=== PATIENT | female | born 1960 | race African-American/Black ===

== ENCOUNTER 2016-09-06 17:41 | Emergency (ER) | payer MEDICAID ==
[~2016-09-06] VITALS: Ht 154.9 cm; Wt 54.4 kg
[2016-09-06 17:52] VITALS: BP_SYST 100
--- NOTE | 2016-09-06 17:58 | NUR ---
Pt placed to ER waiting room in stable condition with pediatric critical care nurse.
--- NOTE | 2016-09-06 18:00 | NUR ---
Pt. to ER AAOx4 presented with her [facility] for ER follow up as per recommendations of her Neurologist to rule out any abdnormal labs, pt. presented asymptomatic, follows commands
--- NOTE | 2016-09-06 18:02 | NUR ---
Pt to hallway bed 1 accompanied by caregiver.
--- NOTE | 2016-09-06 18:10 | NUR ---
Dr. Melendez at bedside for evaluation
[2016-09-06 18:20] VITALS: BP_SYST 110
--- NOTE | 2016-09-06 18:20 | NUR ---
Patient given written and verbal discharge instructions and verbalizes understanding. ER MD Dr. Melendez discussed with patient the results and treatment provided. Patient in stable condition. ID arm band removed. No Rx given. Patient educated on pain management and to follow up with PMD. Pain Scale 0/10 Opportunity for questions provided and answered.
== END 2016-09-06 18:20 | disposition home or self-care (01) ==
LOC: SED 17:41
DX: D72.819 Decreased white blood cell count, unspecified (principal); D69.6 Thrombocytopenia, unspecified; Z88.1 Allergy status to other antibiotic agents; Z88.8 Allergy status to other drugs, medicaments and biological substances
CPT/HCPCS: 99281

== ENCOUNTER 2021-01-26 13:33 | Inpatient (IN) | payer MEDICAID, SELFPAY ==
[~2021-01-26] VITALS: Ht 157.5 cm; Wt 49.9 kg
[2021-01-26 13:33] VITALS: BP_SYST 124
--- NOTE | 2021-01-26 13:33 | NUR ---
BROUGHT BACK TO BED #2 AND TRIAGED. REPORT GIVEN TO SANDY
[2021-01-26 14:19] LABS: BASOPHILS # (AUTO) 0.1 K/uL (0.0-0.2); BASOPHILS % (AUTO) 0.7 % (0.0-2.0); EOSINOPHILS % (AUTO) 0.2 % (0.0-4.0); HEMATOCRIT 36.3 % (36-48); LYMPHOCYTES # (AUTO) 0.7 K/uL (1.0-5.5); LYMPHOCYTES % (AUTO) 8.6 % (20.5-51.5); MEAN CORPUSCULAR HEMOGLOBIN 31 pg (27-31); MEAN CORPUSCULAR HGB CONC 33 % (32-36); MEAN CORPUSCULAR VOLUME 95 fL (79.0-98.0); MONOCYTES # (AUTO) 0.6 K/uL (0.0-1.0); MONOCYTES % (AUTO) 7.9 % (1.7-9.3); NEUTROPHILS # (AUTO) 6.4 K/uL (1.8-7.7); NEUTROPHILS % (AUTO) 82.6 % (40.0-70.0); PLATELET COUNT (AUTO) 151 K/uL (130-430); RED BLOOD CELL COUNT(AUTO) 3.83 MIL/uL (4.2-6.2); RED CELL DISTRIBUTION WIDTH 16.2 % (9.0-15.0); WHITE BLOOD COUNT (AUTO) 7.8 K/uL (4.8-10.8)
--- NOTE | 2021-01-26 14:23 | NUR ---
PT NOTED TO BE IN ROOM 2, PT AWAKE, ALERT, ORIENTED TO NAME ONLY-CONFUSED, ABLE TO FOLLOW SIMPLE COMMANDS. NSR ON MONITOR. RESP EVEN AND UNLABORED, IN NAD. SAFETY PRECAUTIONS IN PLACE.
[2021-01-26 14:33] LABS: CALCIUM 8.4 mg/dL (8.4-11.0); CREATININE 0.66 mg/dL (0.55-1.30); GLUCOSE 99 mg/dL (70-99); POTASSIUM 4.1 mmol/L (3.5-5.1); SODIUM SERUM 138 mmol/L (136-145); UREA NITROGEN, BLOOD 10 mg/dL (8-21)
[2021-01-26 14:37] LABS: INR 1.1 (0.8-1.2); PROTHROMBIN TIME 11.6 SECS (9.5-12.5)
[2021-01-26 14:42] LABS: ALANINE AMINOTRANSFERASE 21 U/L (12-78); ALBUMIN 3.5 g/dL (3.4-4.8); ASPARTATE AMINOTRANSFERASE 18 U/L (10-37); TOTAL BILIRUBIN 0.4 mg/dL (0.0-1.0); VALPROIC ACID 78 ug/mL (50-100)
[2021-01-26 14:47] LABS: CHLORIDE 98 mmol/L (98-107)
[2021-01-26 14:55] LABS: ANION GAP < 3 (5-15); GFR AFRICAN AMERICAN 117 mL/min (>90)
--- NOTE | 2021-01-26 16:09 | NUR ---
PT WITH EYES CLOSED, IN NAD. VSS.
[2021-01-26] MEDS ORDERED: NACL 0.9% 1,000 ML IV ONE (16:30)
[2021-01-26] MEDS ORDERED: DOXYCYCLINE HYCLATE 100 MG in D5W 100 ML IV ONE (17:00)
[2021-01-26] MEDS ORDERED: cefTRIAXone 1 GM in D5W 50 ML IV ONE ×2 (17:00→17:45)
--- NOTE | 2021-01-26 17:07 | NUR ---
ORDERS RECEIVED FOR IV AND MEDS, PT WITH EYES CLOSED, WILL CONT TO MONITOR.
[2021-01-26] MEDS ORDERED: cefTRIAXone 1 GM VIAL ONE (17:25)
[2021-01-26] MEDS ORDERED: DOXYCYCLINE HYCLATE 100 MG VIAL IV ONE (17:26)
--- NOTE | 2021-01-26 17:30 | NUR ---
Admit orders received, pt to go to tele, called for bed assignment, Carisa will call me back.
[2021-01-26] MEDS ORDERED: ACETAMINOPHEN 650 MG/20.3 ML UDC PO ONE (17:45)
[2021-01-26] MEDS ORDERED: AZITHROMYCIN 500 MG in NS 250 ML IV ONE (17:45)
[2021-01-26] MEDS ORDERED: IPRATROPIUM/ALBUTEROL SULFATE 3 ML AMPUL.NEB (DUONEB) INH PRN ×2 (17:45→20:45)
--- NOTE | 2021-01-26 18:20 | NUR ---
Talked to Carisa charge nurse, room assigned, was instructed to wait "because the room needs to be cleaned"
--- NOTE | 2021-01-26 18:49 | NUR ---
NO ACUTE CHANGES IN CONDITION, PT IN NAD. RESP EVEN AND UNLABORED, ON RA @98%. PT DENIES ANY PAIN OR SOB. WAITING FOR TELE BED. CN -ALDO AWARE.
[2021-01-26] MEDS ORDERED: FOLI-43 PO (19:06)
[2021-01-26] MEDS ORDERED: APIX5TAB4 PO (19:06)
[2021-01-26] MEDS ORDERED: BUME1TAB8 PO (19:06)
--- NOTE | 2021-01-26 19:08 | NUR ---
Received report from WADE Alvares and continue care of patient.
[2021-01-26] MEDS ORDERED: LACT10SO6 PO (19:14)
[2021-01-26] MEDS ORDERED: LAM100 PO (19:14)
[2021-01-26] MEDS ORDERED: NITR-85 PO (19:14)
[2021-01-26] MEDS ORDERED: VALP250C3 PO (19:14)
[2021-01-26] MEDS ORDERED: PROM5SYR PO (19:14)
[2021-01-26] MEDS ORDERED: METO2.5T6 PO (19:14)
[2021-01-26] MEDS ORDERED: CYCL10TA24 PO (19:14)
[2021-01-26] MEDS ORDERED: RISP1TAB7 PO (19:14)
[2021-01-26] MEDS ORDERED: VITD2000 PO (19:14)
[2021-01-26] MEDS ORDERED: LIP20 PO (19:14)
[2021-01-26] MEDS ORDERED: LACT10PA5 PO (19:14)
--- NOTE | 2021-01-26 19:14 | NUR ---
Dimple mansfield in [facility] - 01/26/21 at 1915 by SDTRAVPD Medication reconciliation completed with information provided by facility documents. Any prior medication reconciliation on file was reviewed and corrected.
--- NOTE | 2021-01-26 19:14 | NUR ---
Medication reconciliation completed with information provided by facility documents. Any prior medication reconciliation on file was reviewed and corrected.
--- NOTE | 2021-01-26 19:36 | NUR ---
MRSA swabs collected and sent to lab.
[2021-01-26] MEDS ORDERED: AZITHROMYCIN 500 MG/VIAL (ZITHROMAX) IV ONE (19:48)
--- NOTE | 2021-01-26 20:11 | NUR ---
Dr. Oswald at bedside for exam.
--- NOTE | 2021-01-26 20:24 | NUR ---
Patient will be admitted to care of Dr. Pruitt. Admitted to TELE unit. Will go to room 132C. Belongings list completed. Complete and up to date summary report printed. SBAR report to be given at bedside with opportunity for questions.
--- NOTE | 2021-01-26 20:26 | NUR ---
RECEIVED PT FROM ER VIA JAMISON. PT STABLE WITH RESPIRATIONS EVEN AND UNLABORED. PT IS ON 2L O2 VIA NC. NO SIGNS OF DISTRESS NOTED. RECEIVED REPORT FROM DANDY LICENSED PERSONAL. PT STATES SHE IS TIRED AND WANTS TO SLEEP. RIGHT HAND IV 22G INTACT RUNNING IV ABX. PT EXTREMITIES COLD TO THE TOUCH. ADDITIONAL BLANKETS GIVEN. INVENTORY TAKEN. PT CHANGED INTO GOWN AND TELE PLACED. BED IN LOWEST AND LOCKED POSITION. SAFETY PRECAUTIONS IN PLACE. BED IN LOWEST AND LOCKED POSITION. WILL CONTINUE TO MONITOR.
[2021-01-26 21:00] VITALS: BP_SYST 131
[2021-01-26] MEDS: NORMAL SALINE 5 ML DISP.SYRIN IVF SCH (21:10)
--- NOTE | 2021-01-26 21:20 | NUR ---
RECEIVED CALL FROM [facility] SPOKE WITH WADE BAXTER WHO CARES FOR PT. WAS ABLE TO GET HISTORY AND INFORMATION ABOUT PT. HX RECEIVED.
[2021-01-26] MEDS: IPRATROPIUM/ALBUTEROL SULFATE 3 ML AMPUL.NEB (DUONEB) INH SCH (21:32)
[2021-01-26] MEDS: BUDESONIDE 0.5 MG/2 ML AMPUL.NEB INH SCH (21:32)
[2021-01-27 03:16] VITALS: BP_SYST 131
[2021-01-27] MEDS: IPRATROPIUM/ALBUTEROL SULFATE 3 ML AMPUL.NEB (DUONEB) INH SCH ×4 (04:13→20:09)
[2021-01-27] MEDS: NORMAL SALINE 5 ML DISP.SYRIN IVF SCH ×3 (05:29→22:24)
[2021-01-27 06:41] LABS: BASOPHILS % (AUTO) 0.4 % (0.0-2.0); EOSINOPHILS % (AUTO) 0.3 % (0.0-4.0); HEMATOCRIT 39.1 % (36-48); HEMOGLOBIN 12.6 g/dL (12.0-16.0); LYMPHOCYTES # (AUTO) 0.8 K/uL (1.0-5.5); MEAN CORPUSCULAR HEMOGLOBIN 31 pg (27-31); MEAN CORPUSCULAR HGB CONC 32 % (32-36); MEAN CORPUSCULAR VOLUME 96 fL (79.0-98.0); MONOCYTES # (AUTO) 0.6 K/uL (0.0-1.0); MONOCYTES % (AUTO) 7.9 % (1.7-9.3); NEUTROPHILS # (AUTO) 6.4 K/uL (1.8-7.7); NEUTROPHILS % (AUTO) 81.4 % (40.0-70.0); PLATELET COUNT (AUTO) 143 K/uL (130-430); RED BLOOD CELL COUNT(AUTO) 4.08 MIL/uL (4.2-6.2); RED CELL DISTRIBUTION WIDTH 16.2 % (9.0-15.0); WHITE BLOOD COUNT (AUTO) 7.8 K/uL (4.8-10.8)
[2021-01-27] MEDS: BUDESONIDE 0.5 MG/2 ML AMPUL.NEB INH SCH ×2 (09:00→20:09)
[2021-01-27 09:49] LABS: ALBUMIN 3.6 g/dL (3.4-4.8); CALCIUM 8.9 mg/dL (8.4-11.0); CREATININE 0.58 mg/dL (0.55-1.30); POTASSIUM 3.8 mmol/L (3.5-5.1); TOTAL BILIRUBIN 0.4 mg/dL (0.0-1.0)
[2021-01-27 09:50] LABS: THYROID STIMULATING HORMONE 3.42 uIu/mL (0.36-3.74)
[2021-01-27] MEDS: PANTOPRAZOLE SODIUM 40 MG/VIAL (PROTONIX) IVP SCH (10:01)
[2021-01-27 12:20] VITALS: BP_SYST 137
[2021-01-27] MEDS ORDERED: BUMEX 1 MG/4 ML VIAL IVP ONE (12:45)
[2021-01-27 15:54] VITALS: BP_SYST 159
[2021-01-27 19:00] VITALS: BP_SYST 129
--- NOTE | 2021-01-27 19:15 | NUR ---
change of shift.pt.new admission.pt.presents loc;confused affect;anxious.pt.had removed iv access.pt.presents o2 therapy via nrb-mask,o2 nasal cannulae.call light/telephone w/in access of the pt.
[2021-01-27 20:00] VITALS: BP_SYST 129
--- NOTE | 2021-01-27 20:00 | NUR ---
pt.assessed.v/s assessed values wnl.o2-sat%=94%.i have re-established the iv access;location:lt.hand#24g.pt.assessed for cleanliness pt.repositioned.no c/o pain,nausea.call light/telephone placed w/in access of the pt.
[2021-01-27] MEDS: BUMEX 1 MG/4 ML VIAL IVP SCH (21:00)
--- NOTE | 2021-01-27 21:00 | NUR ---
2100p medications administered.pt.capable to ingest the po medications w/out difficulty.no c/o pain,nausea.call light/ telephone placed w/in access of the pt.
--- NOTE | 2021-01-27 21:13 | NUR ---
DR. KIM ALVAREZ MAKING ROUNDS AT THIS TIME, HE HAS GIVEN NEW ORDER FOR ATIVAN 0.5 MG PO Q6H PRN ANXIETY OR AGITATION. ORDER READ BACK, VERIFIED, AND ENTERED.
[2021-01-27] MEDS ORDERED: LORazepam 1 MG TABLET PO PRN (21:15)
--- NOTE | 2021-01-27 22:00 | NUR ---
pt.assessed.pt.presents quiescent affect calm,somnolent.per flacc pain mgx pt.absent facial grimaces/body posturing. iv access intact iv fluids infusing.pt.assessed for cleanliness.pt.repositioned.call light/legal executive placed w/in access of the pt. Addendum: 01/28/21 at 0417 by Yehuda Cassidy RN 02-sat%=96%
[2021-01-27] MEDS: APIXABAN 2.5 MG TABLET PO SCH (22:24)
[2021-01-27] MEDS: AZITHROMYCIN 500 MG in NS 250 ML IV SCH (22:26)
[2021-01-27] MEDS: cefTRIAXone 1 GM IVPB PREMIX 50 ML IV SCH (22:26)
[2021-01-27] MEDS ORDERED: cefTRIAXone 1 GM VIAL ONE (22:28)
[2021-01-27] MEDS ORDERED: AZITHROMYCIN 500 MG/VIAL (ZITHROMAX) IV ONE (22:29)
--- NOTE | 2021-01-28 | NUR ---
pt.assessed.v/s assessed values wnl.no c/o pain,nausea.iv access intact iv fluids infusing.pt.assessed for cleanliness pt.repositioned.call light/telephone placed w/in access of the pt. Addendum: 01/28/21 at 0416 by Yehuda Cassidy RN 02-sat%=96%.
[2021-01-28] MEDS: IPRATROPIUM/ALBUTEROL SULFATE 3 ML AMPUL.NEB (DUONEB) INH SCH ×4 (00:20→19:52)
[2021-01-28 00:30] VITALS: BP_SYST 107
--- NOTE | 2021-01-28 02:00 | NUR ---
pt.assessed.pt.presents quiescent affect calm,somnolent.per flacc pain mgx pt.absent facial grimaces/body posturing. iv access intact iv fluids infusing.o2-sat%=96%.pt.assessed for cleanliness.pt.repositioned.call light/telephone placed w/in access of the pt.
--- NOTE | 2021-01-28 04:00 | NUR ---
pt.assessed.pt.presents quiescent affect calm,somnolent.per flacc pain mgx pt.absent facial grimaces/body posturing. pt.assessed for cleanliness.pt.repositioned.iv access intact iv fluids infusing.02-sat%=96%.call light/telephone placed w/in access of the pt.
[2021-01-28] MEDS: NORMAL SALINE 5 ML DISP.SYRIN IVF SCH ×3 (05:03→22:20)
--- NOTE | 2021-01-28 06:04 | NUR ---
pt.assessed.o2-sat%=94%.pt.assessed for cleanliness.pt.repositioned.iv access intact iv fluids infusing.no c/o pain,nausea. call light/telephone placed w/in access of the pt.
[2021-01-28 07:58] VITALS: BP_SYST 132
--- NOTE | 2021-01-28 08:23 | NUR ---
INITIAL ROUNDS/ RESP Received pt AAox1-2, very sweaty, SAO2 55% at 0758 per nursing unit clerk, RT was in the room and placed the pt on NRB at 15L O2. Stat ABGs done and pCO2 105-Dr. Oswald called and informed of critical value and pt placed on Bipap as ordered. Dr. Oswald will see pt shortly. Side rails up x3, room across from nursing station for safety, call light within reach.
--- NOTE | 2021-01-28 08:50 | NUR ---
rt notes 0820 Seen pt, no o2 and gasping for air. Upon pulse ox check, pt sat 55%. 15L NRB was placed. ABG maday, based on results CO2 105. Placed pt on BIPAP per Dr. Oswald's settings. ABG in 2 hours. Will continue to monitor pt. RN Reena aware.
[2021-01-28] MEDS: BUDESONIDE 0.5 MG/2 ML AMPUL.NEB INH SCH ×2 (09:00→19:52)
[2021-01-28] MEDS: PANTOPRAZOLE SODIUM 40 MG/VIAL (PROTONIX) IVP SCH (09:47)
[2021-01-28] MEDS: BUMEX 1 MG/4 ML VIAL IVP SCH ×2 (09:49→22:08)
[2021-01-28] MEDS: ATORVASTATIN 20 MG TABLET PO SCH (09:49)
[2021-01-28] MEDS: APIXABAN 2.5 MG TABLET PO SCH ×2 (09:50→22:19)
[2021-01-28 10:57] LABS: BASOPHILS % (AUTO) 0.3 % (0.0-2.0); EOSINOPHILS % (AUTO) 0.1 % (0.0-4.0); HEMATOCRIT 40.1 % (36-48); HEMOGLOBIN 12.8 g/dL (12.0-16.0); LYMPHOCYTES # (AUTO) 0.2 K/uL (1.0-5.5); LYMPHOCYTES % (AUTO) 1.7 % (20.5-51.5); MEAN CORPUSCULAR HEMOGLOBIN 31 pg (27-31); MEAN CORPUSCULAR HGB CONC 32 % (32-36); MEAN CORPUSCULAR VOLUME 96 fL (79.0-98.0); MONOCYTES # (AUTO) 0.6 K/uL (0.0-1.0); MONOCYTES % (AUTO) 4.7 % (1.7-9.3); NEUTROPHILS # (AUTO) 11.2 K/uL (1.8-7.7); NEUTROPHILS % (AUTO) 93.2 % (40.0-70.0); PLATELET COUNT (AUTO) 170 K/uL (130-430); RED BLOOD CELL COUNT(AUTO) 4.17 MIL/uL (4.2-6.2); RED CELL DISTRIBUTION WIDTH 16.1 % (9.0-15.0)
[2021-01-28 11:07] LABS: CALCIUM 9.5 mg/dL (8.4-11.0); CREATININE 0.62 mg/dL (0.55-1.30); POTASSIUM 4.3 mmol/L (3.5-5.1)
[2021-01-28 12:00] VITALS: BP_SYST 120
--- NOTE | 2021-01-28 13:40 | NUR ---
rt notes 1340 Offload pt. from bipap. Placed pt on 4LNC, pt tolerating well. saturating 97%. will continue to monitor pt. RN Reena aware.
--- NOTE | 2021-01-28 14:18 | NUR ---
RESP Pt has low SAO2 of 77%, noted pt removed her oxygen, oxygen placed back onto pt-encouraged slow, deep breaths and only able to get SAO2 up to 85%-RT called and now SAO2 95%. Pt changed and repositioned with pillow support-pt refused heels off-loaded. All precautions remain in place.
[2021-01-28 16:00] VITALS: BP_SYST 128
--- NOTE | 2021-01-28 16:07 | NUR ---
rt notes 1607 Titrated pt to 3LNC saturating 95%. encouraged pt to breath through nose. Occasionally pt desats due to pt moving around/ removing O2. will continue to monitor pt.
--- NOTE | 2021-01-28 17:56 | NUR ---
IV Pt's IV became dislodged, unable to find a new site. Dr. Pruitt called and order for a midline given.
--- NOTE | 2021-01-28 18:46 | NUR ---
CLOSING NOTE Pt sitting up in bed with no s/s resp distress, no c/o pain or discomfort. Pt remains confused and anxious at times. Aspiration, skin and safety precautions remain in place. Call light within reach.
[2021-01-28 19:25] VITALS: BP_SYST 107
--- NOTE | 2021-01-28 19:25 | NUR ---
INITIAL NOTE AT INITIAL ASSESSMENT, PATIENT IS RESTING IN BED, STABLE, NO SIGNS OF RESPIRATORY DISTRESS. PATIENT VERBALIZES NO PAIN. PLAN OF CARE FOR THE EVENING IS COMMUNICATED WITH THE PATIENT, SHE IS CONFUSED, WHICH IS HER BASELINE. PATIENT IS UNABLE TO DEMONSTRATE CORRECT USAGE OF CALL LIGHT AT THIS TIME DUE TO COGNITIVE IMPAIRMENT; FREQUENT ROUNDING WILL BE COMPLETED THROUGHOUT THE NIGHT TO MEET ALL PATIENT NEEDS. BED IS LOCKED, ALARMED, AND AT THE LOWEST LEVEL. FALL SAFETY EDUCATION PROVIDED. FALL, SAFETY, AND RESPIRATORY PRECAUTIONS WILL BE TAKEN THROUGHOUT THE SHIFT.
--- NOTE | 2021-01-28 21:45 | NUR ---
NEW IV PLACEMENT NEW IV IS PLACED ON PATIENT'S LEFT FOREARM #22 GAUGE, 10 MLS NS FLUSHED WITH NO RESISTANCE OR PAIN. PATIENT TOLERATED WELL. IV IS CHECKED TO BE PATENT, SECURED, AND LABELED WITH DATE AND TIME OF INSERTION.
[2021-01-28] MEDS: cefTRIAXone 1 GM IVPB PREMIX 50 ML IV SCH (21:58)
[2021-01-28] MEDS: AZITHROMYCIN 500 MG in NS 250 ML IV SCH (21:58)
--- NOTE | 2021-01-28 22:30 | NUR ---
COMMUNICATION W/ DR. KIM ALVAREZ PAGED AT THIS TIME, HE HAS BEEN MADE AWARE OF PATIENT'S COMPLAINT OF ITCHINESS. GAVE ORDERS FOR BENADRYL 25 MG IVP [id number] PRN ITCHINESS. ORDER READ BACK, VERIFIED, AND ENTERED. WILL BE GIVEN TO PATIENT ONCE APPROVED BY PHARMACY. Addendum: 01/29/21 at 0631 by Kylee Lebron RN DR. ALVAREZ ALSO MADE AWARE THAT PATIENT IS VERY ANXIOUS, WITH NONSTOP SHOUTING. DR. ALVAREZ GAVE ORDER FOR ATIVAN BUT WAS MADE AWARE THAT PATIENT IS ALLERGIC TO ATIVAN. STATED NO NEW ORDERS FOR ANXIETY AND AGITATION.
[2021-01-28] MEDS: DIPHENHYDRAMINE INJ 50 MG/ML VIAL IVP PRN (22:57)
--- NOTE | 2021-01-28 23:10 | NUR ---
HYGIENE CARE NOTE HYGIENE CARE IS PROVIDED AT THIS TIME, FRESH LINENS PROVIDED, AND PATIENT IS REPOSITIONED FOR COMFORT. PATIENT TOLERATED WELL. CALL LIGHT PLACED WITHIN REACH. BED IS LOCKED, ALARMED, AND AT THE LOWEST LEVEL.
[2021-01-29] VITALS: BP_SYST 111
[2021-01-29] MEDS: IPRATROPIUM/ALBUTEROL SULFATE 3 ML AMPUL.NEB (DUONEB) INH SCH ×3 (02:45→15:05)
--- NOTE | 2021-01-29 05:40 | NUR ---
HYGIENE CARE NOTE PATIENT HAD BOWEL MOVEMENT AND VOID, HYGIENE CARE IS PROVIDED AT THIS TIME, FRESH LINENS PROVIDED, AND PATIENT IS REPOSITIONED FOR COMFORT. PATIENT TOLERATED WELL. CALL LIGHT PLACED WITHIN REACH. BED IS LOCKED, ALARMED, AND AT THE LOWEST LEVEL.
--- NOTE | 2021-01-29 06:27 | NUR ---
CLOSING NOTE PATIENT WAS ANXIOUS AND AGITATED THROUGHOUT THE NIGHT, SHOUTING BECAUSE SHE WANTED STAFF AT BEDSIDE EVERY PASSING SECOND- SHE SLEPT FOR FEW MINUTES WHEN SHE WOULD FALL ASLEEP. NO SHORTNESS OF BREATH NOTED. AT THIS TIME, PATIENT IS RESTING IN BED, STABLE, NO SIGNS OF RESPIRATORY DISTRESS. CALL LIGHT IS WITHIN REACH. BED IS LOCKED, ALARMED, AND AT THE LOWEST LEVEL. FALL, SAFETY, ASPIRATION, AND RESPIRATORY PRECAUTIONS HAVE BEEN TAKEN THROUGHOUT THE SHIFT. WILL CONTINUE TO MONITOR UNTIL SHIFT REPORT IS GIVEN AT BEDSIDE TO AM NURSE.
[2021-01-29] MEDS: NORMAL SALINE 5 ML DISP.SYRIN IVF SCH ×3 (06:49→22:23)
--- NOTE | 2021-01-29 07:15 | NUR ---
RESTRAINTS PATIENT WITH LOW O2 SATURATION, REFUSED TO KEEP OXYGEN. PATIENT IS CONFUSED, BILATERAL WRIST RESTRAINTS APPLIED TO PREVENT FROM REMOVING 02 AND OXYGEN. UNABLE TO CONTACT FAMILY MEMBER, NO ONE ANSWER THE PHONE.. GAVE ORDER TO APPLY RESTRAINTS TO PATIENT
--- NOTE | 2021-01-29 07:45 | NUR ---
OPENING NOTES: RECEIVED PATIENT FROM PLATE STACKER HAND NURSE. PATIENT IS AWAKE LAYING DOWN IN BED. TOLERATED OXYGEN ON 3L NASAL CANNULA WITH NO DISTRESS NOTED. IV LINE PATENT AND INTACT WITH NO INFILTRATION NOTED. PATIENT STABLE AT THIS TIME. SAFETY, FALL, AND ASPIRATION PRECAUTIONS ARE IN PLACE. BED LOCKED IN LOWEST POSITION AND CALL LIGHT IN REACH. WILL CONTINUE TO MONITOR PATIENT FOR ANY CHANGES.
[2021-01-29 08:00] VITALS: BP_SYST 114
[2021-01-29 08:41] VITALS: BP_SYST 111
[2021-01-29] MEDS: BUDESONIDE 0.5 MG/2 ML AMPUL.NEB INH SCH (09:07)
[2021-01-29 09:51] LABS: BASOPHILS % (AUTO) 0.3 % (0.0-2.0); EOSINOPHILS % (AUTO) 0.1 % (0.0-4.0); HEMATOCRIT 36.6 % (36-48); HEMOGLOBIN 11.7 g/dL (12.0-16.0); LYMPHOCYTES # (AUTO) 0.2 K/uL (1.0-5.5); LYMPHOCYTES % (AUTO) 1.5 % (20.5-51.5); MEAN CORPUSCULAR HEMOGLOBIN 31 pg (27-31); MEAN CORPUSCULAR HGB CONC 32 % (32-36); MEAN CORPUSCULAR VOLUME 96 fL (79.0-98.0); MONOCYTES % (AUTO) 8.3 % (1.7-9.3); NEUTROPHILS # (AUTO) 11.1 K/uL (1.8-7.7); NEUTROPHILS % (AUTO) 89.8 % (40.0-70.0); PLATELET COUNT (AUTO) 152 K/uL (130-430); RED BLOOD CELL COUNT(AUTO) 3.81 MIL/uL (4.2-6.2); WHITE BLOOD COUNT (AUTO) 12.3 K/uL (4.8-10.8)
--- NOTE | 2021-01-29 10:00 | NUR ---
CM: faxed subacute referral to [facility], attjeffrey Gonzalez. The pt is accepted but no care home bed. Lisa is expecting bed available during upcoming week.
[2021-01-29] MEDS: PANTOPRAZOLE SODIUM 40 MG/VIAL (PROTONIX) IVP SCH (10:10)
[2021-01-29] MEDS: ATORVASTATIN 20 MG TABLET PO SCH (10:11)
[2021-01-29] MEDS: APIXABAN 2.5 MG TABLET PO SCH ×2 (10:11→22:29)
[2021-01-29] MEDS: BUMEX 1 MG/4 ML VIAL IVP SCH ×2 (10:14→22:24)
--- NOTE | 2021-01-29 10:33 | NUR ---
Nutrition Update Mendoza Scale 18 noted. Pt admitted for respiratory acidosis. Diet: 2 gm Na BMI: 20.2 kg/m2 RD to follow per nutrition care standards.
[2021-01-29 10:41] LABS: CALCIUM 8.8 mg/dL (8.4-11.0); CREATININE 0.67 mg/dL (0.55-1.30)
[2021-01-29 12:00] VITALS: BP_SYST 116
[2021-01-29 16:00] VITALS: BP_SYST 122
--- NOTE | 2021-01-29 18:45 | NUR ---
CLOSING NOTES: PATIENT IS AWAKE LAYING DOWN IN BED. TOLERATED OXYGEN ON 3L NASAL CANNULA WITH NO DISTRESS NOTED. IV LINE PATENT AND INTACT WITH NO INFILTRATION NOTED. PATIENT STABLE AT THIS TIME. SAFETY, FALL, AND ASPIRATION PRECAUTIONS REMAINED IN PLACE. BED LOCKED IN LOWEST POSITION AND CALL LIGHT IN REACH. WILL ENDORSE PATIENT CARE TO ONCOMING GARMENT FORM ASSEMBLER NURSE.
[2021-01-29 19:25] VITALS: BP_SYST 112
[2021-01-29] MEDS: AZITHROMYCIN 500 MG in NS 250 ML IV SCH (22:22)
[2021-01-29] MEDS: DIPHENHYDRAMINE INJ 50 MG/ML VIAL IVP PRN (22:22)
[2021-01-29] MEDS: cefTRIAXone 1 GM IVPB PREMIX 50 ML IV SCH (22:22)
[2021-01-30 00:45] VITALS: BP_SYST 122
[2021-01-30] MEDS: IPRATROPIUM/ALBUTEROL SULFATE 3 ML AMPUL.NEB (DUONEB) INH SCH ×4 (02:15→14:45)
[2021-01-30] MEDS: BUDESONIDE 0.5 MG/2 ML AMPUL.NEB INH SCH ×2 (02:16→09:00)
[2021-01-30 06:39] LABS: BASOPHILS # (AUTO) 0.1 K/uL (0.0-0.2); BASOPHILS % (AUTO) 0.6 % (0.0-2.0); EOSINOPHILS # (AUTO) 0.3 K/uL (0.0-0.4); EOSINOPHILS % (AUTO) 3.3 % (0.0-4.0); HEMATOCRIT 33.5 % (36-48); LYMPHOCYTES # (AUTO) 0.5 K/uL (1.0-5.5); LYMPHOCYTES % (AUTO) 5.8 % (20.5-51.5); MEAN CORPUSCULAR HEMOGLOBIN 32 pg (27-31); MEAN CORPUSCULAR HGB CONC 33 % (32-36); MEAN CORPUSCULAR VOLUME 96 fL (79.0-98.0); MONOCYTES # (AUTO) 0.9 K/uL (0.0-1.0); MONOCYTES % (AUTO) 10.1 % (1.7-9.3); NEUTROPHILS # (AUTO) 7.3 K/uL (1.8-7.7); NEUTROPHILS % (AUTO) 80.2 % (40.0-70.0); PLATELET COUNT (AUTO) 190 K/uL (130-430); RED BLOOD CELL COUNT(AUTO) 3.48 MIL/uL (4.2-6.2); RED CELL DISTRIBUTION WIDTH 15.7 % (9.0-15.0); WHITE BLOOD COUNT (AUTO) 9.1 K/uL (4.8-10.8)
[2021-01-30] MEDS: NORMAL SALINE 5 ML DISP.SYRIN IVF SCH ×3 (06:41→22:00)
--- NOTE | 2021-01-30 07:01 | NUR ---
CLOSING NOTE PATIENT WAS ANXIOUS THROUGHOUT MOST THE NIGHT. PATIENT DID NOT HAVE ANY ACUTE EPISODES OF RESPIRATORY DISTRESS SINCE RESTRAINTS WERE ON. AT THIS TIME, PATIENT IS RESTING IN BED, STABLE, NO SIGNS OF RESPIRATORY DISTRESS. CALL LIGHT IS WITHIN REACH. BED IS LOCKED, ALARMED, AND AT THE LOWEST LEVEL. SIGNS OF INJURY RELATED TO RESTRAINTS WERE ASSESSED [id number] DURING THE SHIFT, NO SIGNS NOTED. FALL, SAFETY, ASPIRATION, RESTRAINT, AND RESPIRATORY PRECAUTIONS HAVE BEEN TAKEN THROUGHOUT THE SHIFT. WILL CONTINUE TO MONITOR UNTIL SHIFT REPORT IS GIVEN AT BEDSIDE TO AM NURSE.
[2021-01-30 07:45] VITALS: BP_SYST 122
--- NOTE | 2021-01-30 08:00 | NUR ---
MORNING ROUNDS: RECEIVED PATIENT FROM CARGO CHECKER NURSE. PATIENT IS AWAKE LAYING DOWN IN BED. TOLERATED OXYGEN ON 3L NASAL CANNULA WITH NO DISTRESS NOTED. IV LINE PATENT AND INTACT WITH NO INFILTRATION NOTED. PATIENT STABLE AT THIS TIME. SAFETY, FALL, AND ASPIRATION PRECAUTIONS ARE IN PLACE. BED LOCKED IN LOWEST POSITION AND CALL LIGHT IN REACH. WILL CONTINUE TO MONITOR PATIENT FOR ANY CHANGES.
[2021-01-30] MEDS: PANTOPRAZOLE SODIUM 40 MG/VIAL (PROTONIX) IVP SCH (08:26)
[2021-01-30] MEDS: BUMEX 1 MG/4 ML VIAL IVP SCH (08:29)
[2021-01-30] MEDS: ATORVASTATIN 20 MG TABLET PO SCH (08:30)
[2021-01-30] MEDS: APIXABAN 2.5 MG TABLET PO SCH (08:30)
[2021-01-30 09:19] LABS: CALCIUM 8.7 mg/dL (8.4-11.0); CREATININE 0.55 mg/dL (0.55-1.30); POTASSIUM 3.8 mmol/L (3.5-5.1)
--- NOTE | 2021-01-30 11:00 | NUR ---
Discharge Planning: DCP followed up on referral sent to [facility] (F [phone] P [phone]) requesting vaccination status, still no beds. DCP spoke to SHEYLA [facility], CM left message.
[2021-01-30 13:00] VITALS: BP_SYST 113
--- NOTE | 2021-01-30 13:00 | NUR ---
LUNCH ROUNDS: PATIENT IS AWAKE SITTING IN BED. TOLERATED OXYGEN ON 3L NASAL CANNULA WITH NO DISTRESS NOTED. IV LINE PATENT AND INTACT WITH NO INFILTRATION NOTED. PATIENT STABLE AT THIS TIME. SAFETY, FALL, AND ASPIRATION PRECAUTIONS ARE IN PLACE. BED LOCKED IN LOWEST POSITION AND CALL LIGHT IN REACH. WILL CONTINUE TO MONITOR PATIENT FOR ANY CHANGES.
[2021-01-30] MEDS ORDERED: DIGO125T PO (13:48)
[2021-01-30] MEDS ORDERED: BENZ1TAB76 PO (13:48)
[2021-01-30] MEDS ORDERED: LEVO25TA7 PO (13:48)
[2021-01-30] MEDS ORDERED: ASCO500T20 PO (13:48)
[2021-01-30] MEDS ORDERED: PYRI-7 PO (13:48)
[2021-01-30] MEDS ORDERED: AMLO2.5T2 PO (13:48)
[2021-01-30] MEDS ORDERED: METF-379 PO (13:48)
[2021-01-30 17:48] LABS: INR 1.1 (0.8-1.2); PROTHROMBIN TIME 11.7 SECS (9.5-12.5)
[2021-01-30] MEDS: BUMETANIDE 1 MG TABLET PO SCH (17:50)
[2021-01-30 18:11] VITALS: BP_SYST 118
--- NOTE | 2021-01-30 18:42 | NUR ---
Closing Notes: PATIENT IS AWAKE LAYING DOWN IN BED. TOLERATED OXYGEN ON 3L NASAL CANNULA WITH NO DISTRESS NOTED. IV LINE PATENT AND INTACT WITH NO INFILTRATION NOTED. PATIENT STABLE AT THIS TIME. SAFETY, FALL, AND ASPIRATION PRECAUTIONS ARE IN PLACE. BILATERAL WRIST RESTRAINTS IN PLACE. BED LOCKED IN LOWEST POSITION AND CALL LIGHT IN REACH. WILL CONTINUE ENDORSE TO NIGHT NURSE.
[2021-01-30] MEDS: WARFARIN SODIUM 5 MG TABLET PO SCH (18:57)
[2021-01-30 20:06] VITALS: BP_SYST 119
[2021-01-30] MEDS: cefTRIAXone 1 GM IVPB PREMIX 50 ML IV SCH (20:15)
--- NOTE | 2021-01-30 20:23 | NUR ---
INCONTINENCE INCONTINENCE CARE DONE.
[2021-01-30] MEDS: ENOXAPARIN SODIUM 60 MG/0.6 ML SYRINGE SUBCUT SCH (20:34)
[2021-01-30] MEDS: AZITHROMYCIN 500 MG in NS 250 ML IV SCH (21:45)
--- NOTE | 2021-01-30 21:45 | NUR ---
MED PASS PATIENT DUE MEDICATIONS GIVEN. VITAL SIGNS STABLE.
[2021-01-31 00:31] VITALS: BP_SYST 118
--- NOTE | 2021-01-31 01:00 | NUR ---
ROUNDS PATIENT RESTING IN BED. NO DISTRESS NOTED. VITAL SIGNS STABLE.
[2021-01-31] MEDS: IPRATROPIUM/ALBUTEROL SULFATE 3 ML AMPUL.NEB (DUONEB) INH SCH ×5 (02:03→20:01)
[2021-01-31] MEDS: BUDESONIDE 0.5 MG/2 ML AMPUL.NEB INH SCH ×2 (02:04→09:00)
[2021-01-31] MEDS: NORMAL SALINE 5 ML DISP.SYRIN IVF SCH ×3 (05:32→21:48)
--- NOTE | 2021-01-31 06:21 | NUR ---
CLOSING NOTES NO CHANGE IN PATENT CONDITION. PATIENT NEEDS ATTENDED. BED IN LOWEST LOCKED POSITION WITH ALARM ON.
[2021-01-31 06:52] LABS: BASOPHILS % (AUTO) 0.6 % (0.0-2.0); EOSINOPHILS # (AUTO) 0.1 K/uL (0.0-0.4); EOSINOPHILS % (AUTO) 1.8 % (0.0-4.0); HEMATOCRIT 35.8 % (36-48); HEMOGLOBIN 11.4 g/dL (12.0-16.0); LYMPHOCYTES # (AUTO) 0.5 K/uL (1.0-5.5); LYMPHOCYTES % (AUTO) 8.3 % (20.5-51.5); MEAN CORPUSCULAR HEMOGLOBIN 31 pg (27-31); MEAN CORPUSCULAR HGB CONC 32 % (32-36); MEAN CORPUSCULAR VOLUME 97 fL (79.0-98.0); MONOCYTES # (AUTO) 0.7 K/uL (0.0-1.0); MONOCYTES % (AUTO) 11.5 % (1.7-9.3); NEUTROPHILS # (AUTO) 4.5 K/uL (1.8-7.7); NEUTROPHILS % (AUTO) 77.8 % (40.0-70.0); PLATELET COUNT (AUTO) 175 K/uL (130-430); RED BLOOD CELL COUNT(AUTO) 3.71 MIL/uL (4.2-6.2); RED CELL DISTRIBUTION WIDTH 15.5 % (9.0-15.0); WHITE BLOOD COUNT (AUTO) 5.8 K/uL (4.8-10.8)
[2021-01-31 07:57] LABS: CREATININE 0.52 mg/dL (0.55-1.30); POTASSIUM 3.4 mmol/L (3.5-5.1)
[2021-01-31 08:00] VITALS: BP_SYST 118
[2021-01-31 08:01] LABS: INR 1.1 (0.8-1.2); PROTHROMBIN TIME 11.3 SECS (9.5-12.5)
[2021-01-31] MEDS: ATORVASTATIN 20 MG TABLET PO SCH (09:10)
[2021-01-31] MEDS: PANTOPRAZOLE SODIUM 40 MG/VIAL (PROTONIX) IVP SCH (09:10)
[2021-01-31] MEDS: ENOXAPARIN SODIUM 60 MG/0.6 ML SYRINGE SUBCUT SCH ×2 (09:12→21:47)
[2021-01-31] MEDS: BUMETANIDE 1 MG TABLET PO SCH ×2 (09:35→17:48)
--- NOTE | 2021-01-31 10:21 | NUR ---
Dietitian Recommendations *Recommend: Mechanical soft 2gm Na diet w/ Ensure Enlive TID. ONS will provide additional 1050 kcal, 60gm protein daily. *Encourage PO intake. *Consider adding appetite stimulant. Please see Nutritional Assessment for details. NKECHI BRYSON
[2021-01-31 12:00] VITALS: BP_SYST 104
--- NOTE | 2021-01-31 12:53 | NUR ---
spoke with outsole caser and confirmed it is okay to give an update report the nurse misael at [facility] where patient is from, she stated yes, provided update on patient status for INR and that dc planning has been ordered.
--- NOTE | 2021-01-31 14:22 | NUR ---
Discharge Planning: DCP followed up on referral sent to [facility] (F [phone] P [phone]) will not have a bed till Saturday. DCP made CM aware, CM request referral be sent to other facilities.
[2021-01-31 16:00] VITALS: BP_SYST 113
[2021-01-31] MEDS: WARFARIN SODIUM 5 MG TABLET PO SCH (17:47)
--- NOTE | 2021-01-31 19:00 | NUR ---
RECEIVED BEDSIDE REPORT. PT IN BED RESTING AWAKE. NO ACUTE DISTRESS NOTED. BED RAILS UPX2. BED LOCKED IN LOWEST POSITION. CALL LIGHT WITHIN REACH. BED ALARM ON. PT EDUCATED TO USE CALL LIGHT IF SHE NEEDS ASSISTANCE. WILL CONTINUE TO MONITOR.
--- NOTE | 2021-01-31 19:04 | NUR ---
patient in bed, no s/s of distress, tolerating care, iv intact patent, bed alarm on, bilateral soft wrist restraints in place, no s/s of injury, verbal but delayed and confused throughout shift, bed in lowest locked position, call light within reach, endorsed continuation of care to night order selector.
[2021-01-31] MEDS: cefTRIAXone 1 GM IVPB PREMIX 50 ML IV SCH (20:04)
[2021-01-31 20:11] VITALS: BP_SYST 109
[2021-01-31] MEDS: AZITHROMYCIN 500 MG in NS 250 ML IV SCH (21:48)
[2021-01-31] MEDS: DIPHENHYDRAMINE INJ 50 MG/ML VIAL IVP PRN (22:56)
[2021-02-01 01:18] VITALS: BP_SYST 139
[2021-02-01] MEDS: BUDESONIDE 0.5 MG/2 ML AMPUL.NEB INH SCH ×3 (04:57→21:04)
[2021-02-01] MEDS: IPRATROPIUM/ALBUTEROL SULFATE 3 ML AMPUL.NEB (DUONEB) INH SCH ×4 (04:57→21:03)
--- NOTE | 2021-02-01 05:00 | NUR ---
NEW IV INSERTED IN LFA 20G. PT TOLERATED WELL Addendum: 02/01/21 at 0623 by Samuel Buchanan RN WRONG PT.
[2021-02-01] MEDS: NORMAL SALINE 5 ML DISP.SYRIN IVF SCH ×3 (05:38→21:30)
--- NOTE | 2021-02-01 06:21 | NUR ---
PT ASLEEP IN BED WITH EYES CLOSED. PT DOESN'T APPEAR TO BE IN PAIN AT THIS TIME. PAIN AT THIS TIME. CALL LIGHT WITHIN REACH. RESTRAINTS INTACT. SEIZURE PRECAUTIONS IN PLACE. PT SLEPT THROUGH NIGHT.
--- NOTE | 2021-02-01 07:17 | NUR ---
endorsed care to day rn
--- NOTE | 2021-02-01 07:30 | NUR ---
OPENING NOTES: RECEIVED REPORT FROM COPIER AND PRINTER FIELD TECHNICIAN NURSE. PATIENT IS AWAKE LAYING DOWN IN BED. TOLERATED OXYGEN ON 2L NASAL CANNULA WITH NO DISTRESS NOTED. IV LINE PATENT AND INTACT WITH NO INFILTRATION NOTED. PATIENT STABLE AT THIS TIME. SAFETY, FALL, AND ASPIRATION PRECAUTIONS ARE IN PLACE. BED LOCKED IN LOWEST POSITION AND CALL LIGHT IN REACH. WILL CONTINUE TO MONITOR PATIENT FOR ANY CHANGES.
[2021-02-01 07:42] LABS: INR 1.3 (0.8-1.2); PROTHROMBIN TIME 13.3 SECS (9.5-12.5)
[2021-02-01 08:00] VITALS: BP_SYST 122
[2021-02-01] MEDS: ATORVASTATIN 20 MG TABLET PO SCH (09:42)
[2021-02-01] MEDS: PANTOPRAZOLE SODIUM 40 MG/VIAL (PROTONIX) IVP SCH (09:42)
[2021-02-01] MEDS: ENOXAPARIN SODIUM 60 MG/0.6 ML SYRINGE SUBCUT SCH ×2 (09:43→21:33)
[2021-02-01] MEDS: BUMETANIDE 1 MG TABLET PO SCH ×2 (09:45→17:44)
[2021-02-01] MEDS: DIPHENHYDRAMINE INJ 50 MG/ML VIAL IVP PRN (09:55)
[2021-02-01 10:08] VITALS: BP_SYST 122
--- NOTE | 2021-02-01 11:15 | NUR ---
TOOL SPECIALIST ISAAC-MUTUC CHANGE ORDER OF LEVAQUIN TO DOXYCLINE 100 MG PO Q12 X 3 DAYS.
[2021-02-01 12:00] VITALS: BP_SYST 130
[2021-02-01] MEDS ORDERED: levoFLOXacin 500 MG TABLET PO ONE (12:00)
[2021-02-01] MEDS: DOXYCYCLINE HYCLATE 100 MG CAPSULE PO SCH ×2 (12:00→21:32)
[2021-02-01 16:00] VITALS: BP_SYST 125
[2021-02-01] MEDS: WARFARIN SODIUM 5 MG TABLET PO SCH (17:44)
--- NOTE | 2021-02-01 18:30 | NUR ---
CLOSING NOTES: PATIENT IS AWAKE LAYING DOWN IN BED. TOLERATED OXYGEN ON 2L NASAL CANNULA WITH NO DISTRESS NOTED. IV LINE PATENT AND INTACT WITH NO INFILTRATION NOTED. PATIENT STABLE AT THIS TIME. SAFETY, FALL, AND ASPIRATION PRECAUTIONS REMAINED IN PLACE. BED LOCKED IN LOWEST POSITION AND CALL LIGHT IN REACH. WILL ENDORSE PATIENT CARE TO ONCOMING MIME ARTIST NURSE.
--- NOTE | 2021-02-01 19:10 | NUR ---
RECEIVED BEDSIDE REPORT. PT IN BED RESTING. PT CONFUSED AND IN RESTRAINTS. PT CURRENTLY CALM AND NOT YELLING. PT IN BED RAILS UP X2. PT DOES NOT HAVE IV ACCESS AND PER REPORT PREDATORY ANIMAL HUNTER IS AWARE. SEIZURE PRECAUTIONS IN PLACE. BED ALARM ON. CALL LIGHT WITHIN REACH. WILL CONTINUE TO MONITOR.
[2021-02-01] MEDS: DIPHENHYDRAMINE HCL 25 MG CAPSULE PO PRN (21:32)
[2021-02-01 21:54] VITALS: BP_SYST 136
--- NOTE | 2021-02-02 | NUR ---
PT IN BED ASLEEP. PT DOESN'T APPEAR TO BE IN PAIN. SEIZURE PRECAUTIONS. PT IN RESTRAINTS. ALL NEEDS MEET AT THIS TIME. WILL CONTINUE TO MONITOR.
[2021-02-02 00:30] VITALS: BP_SYST 156
[2021-02-02] MEDS: IPRATROPIUM/ALBUTEROL SULFATE 3 ML AMPUL.NEB (DUONEB) INH SCH ×4 (01:43→20:31)
[2021-02-02] MEDS: DIPHENHYDRAMINE HCL 25 MG CAPSULE PO PRN (04:44)
[2021-02-02] MEDS: NORMAL SALINE 5 ML DISP.SYRIN IVF SCH ×3 (05:33→22:00)
[2021-02-02 06:30] LABS: CALCIUM 9.7 mg/dL (8.4-11.0); CHLORIDE 93 mmol/L (98-107); CREATININE 0.54 mg/dL (0.55-1.30); GLUCOSE 151 mg/dL (70-99); POTASSIUM 3.9 mmol/L (3.5-5.1); SODIUM SERUM 139 mmol/L (136-145); UREA NITROGEN, BLOOD 19 mg/dL (8-21)
[2021-02-02 06:35] LABS: INR 1.5 (0.8-1.2); PROTHROMBIN TIME 15.9 SECS (9.5-12.5)
[2021-02-02 06:36] LABS: BASOPHILS % (AUTO) 0.5 % (0.0-2.0); EOSINOPHILS # (AUTO) 0.1 K/uL (0.0-0.4); EOSINOPHILS % (AUTO) 1.4 % (0.0-4.0); HEMATOCRIT 37.8 % (36-48); HEMOGLOBIN 12.3 g/dL (12.0-16.0); LYMPHOCYTES # (AUTO) 0.6 K/uL (1.0-5.5); LYMPHOCYTES % (AUTO) 12.2 % (20.5-51.5); MEAN CORPUSCULAR HEMOGLOBIN 30 pg (27-31); MEAN CORPUSCULAR HGB CONC 33 % (32-36); MEAN CORPUSCULAR VOLUME 93 fL (79.0-98.0); MONOCYTES # (AUTO) 0.4 K/uL (0.0-1.0); MONOCYTES % (AUTO) 7.9 % (1.7-9.3); NEUTROPHILS # (AUTO) 3.8 K/uL (1.8-7.7); PLATELET COUNT (AUTO) 180 K/uL (130-430); RED BLOOD CELL COUNT(AUTO) 4.06 MIL/uL (4.2-6.2); RED CELL DISTRIBUTION WIDTH 15.6 % (9.0-15.0); WHITE BLOOD COUNT (AUTO) 4.9 K/uL (4.8-10.8)
--- NOTE | 2021-02-02 07:01 | NUR ---
WILL ENDORSE CARE TO DAY RN.
--- NOTE | 2021-02-02 07:25 | NUR ---
OPENING NOTES: RECEIVED REPORT FROM STAR ROUTE MAIL DRIVER NURSE. PATIENT IS AWAKE LAYING DOWN IN BED. TOLERATED OXYGEN ON 2L NASAL CANNULA WITH NO DISTRESS NOTED. IV LINE PATENT AND INTACT WITH NO INFILTRATION NOTED. PATIENT STABLE AT THIS TIME. SAFETY, FALL, AND ASPIRATION PRECAUTIONS ARE IN PLACE. BED LOCKED IN LOWEST POSITION AND CALL LIGHT IN REACH. WILL CONTINUE TO MONITOR PATIENT FOR ANY CHANGES.
[2021-02-02 08:00] VITALS: BP_SYST 125
[2021-02-02] MEDS: DOXYCYCLINE HYCLATE 100 MG CAPSULE PO SCH ×2 (08:22→22:49)
[2021-02-02] MEDS: BUMETANIDE 1 MG TABLET PO SCH ×2 (08:22→17:17)
[2021-02-02] MEDS: ATORVASTATIN 20 MG TABLET PO SCH (08:23)
[2021-02-02] MEDS: ENOXAPARIN SODIUM 60 MG/0.6 ML SYRINGE SUBCUT SCH ×2 (08:25→22:51)
[2021-02-02] MEDS ORDERED: levoFLOXacin 500 MG TABLET PO SCH (09:00)
--- NOTE | 2021-02-02 09:00 | NUR ---
DR. ALVAREZ AWARE OF CRITICAL LAB OF PCO2 48. NO CHANGE IN ORDERS.
[2021-02-02 09:03] LABS: ANION GAP < 3 (5-15); GFR AFRICAN AMERICAN 147 mL/min (>90)
[2021-02-02] MEDS: BUDESONIDE 0.5 MG/2 ML AMPUL.NEB INH SCH ×2 (09:31→20:31)
[2021-02-02 11:51] VITALS: BP_SYST 131
[2021-02-02] MEDS ORDERED: THIAMINE HCL 100 MG TABLET PO ONE (13:15)
[2021-02-02 16:22] VITALS: BP_SYST 136
--- NOTE | 2021-02-02 16:48 | NUR ---
Discharge Planning: DCP followed up on referral sent to [facility] (F [phone] P [phone]) declined not contracted with insurance. [facility] does not take medical, [facility] no bed. ELIELP made CM aware.
[2021-02-02] MEDS: WARFARIN SODIUM 6 MG TABLET PO SCH (17:21)
--- NOTE | 2021-02-02 18:13 | NUR ---
DR. ALVAREZ ORDERED DC RESTRAINTS.
--- NOTE | 2021-02-02 18:35 | NUR ---
CLOSING NOTES: PATIENT IS AWAKE LAYING DOWN IN BED. TOLERATED OXYGEN ON 2L NASAL CANNULA WITH NO DISTRESS NOTED. IV LINE PATENT AND INTACT WITH NO INFILTRATION NOTED. PATIENT STABLE AT THIS TIME. SAFETY, FALL, AND ASPIRATION PRECAUTIONS REMAINED IN PLACE. BED LOCKED IN LOWEST POSITION AND CALL LIGHT IN REACH. WILL ENDORSE PATIENT CARE TO ONCOMING ENVIRONMENTAL FIELD TEAM MEMBER NURSE.
--- NOTE | 2021-02-02 19:20 | NUR ---
OPENING NOTES PATIENT RESTING IN BED, NO SIGNS OF RESPIRATORY DISTRESS NOTED. CALL LIGHT WITHIN REACH, PATIENT DOES NOT DEMONSTRATE PROPER CALL LIGHT USAGE, BED ALARM ON, BED AT LOWEST POSITION, BED LOCKED. DISCUSSED PLAN OF CARE WITH PATIENT. FALL, RESPIRATORY, ASPIRATION AND SAFETY PRECAUTIONS IN PLACE. WILL CONTINUE TO MONITOR.
[2021-02-02 20:00] VITALS: BP_SYST 123
[2021-02-03] MEDS: IPRATROPIUM/ALBUTEROL SULFATE 3 ML AMPUL.NEB (DUONEB) INH SCH ×4 (01:30→20:15)
[2021-02-03 02:06] VITALS: BP_SYST 113
[2021-02-03] MEDS: NORMAL SALINE 5 ML DISP.SYRIN IVF SCH ×3 (06:00→21:52)
--- NOTE | 2021-02-03 06:47 | NUR ---
CLOSING NOTES PATIENT RESTING IN BED, NO SIGNS OF DISTRESS NOTED. CALL LIGHT WITHIN REACH, PATIENT DID NOT DEMONSTRATE CALL LIGHT USAGE, PATIENT CLOSELY MONITORED, BED ALARM ON, BED AT LOWEST POSITION, BED LOCKED. FALL, RESPIRATORY, ASPIRATION AND SAFETY PRECAUTIONS IN PLACE THROUGHOUT SHIFT. WILL ENDORSE CARE TO ONCOMING SHIFT.
[2021-02-03] MEDS: BUDESONIDE 0.5 MG/2 ML AMPUL.NEB INH SCH ×2 (07:17→20:15)
[2021-02-03 07:19] VITALS: BP_SYST 110
[2021-02-03 07:52] LABS: INR 1.9 (0.8-1.2); PROTHROMBIN TIME 19.5 SECS (9.5-12.5)
[2021-02-03] MEDS ORDERED: THIAMINE HCL 100 MG TABLET PO SCH (09:00)
[2021-02-03] MEDS: PANTOPRAZOLE SODIUM 40 MG TAB PO SCH (10:06)
[2021-02-03] MEDS: BUMETANIDE 1 MG TABLET PO SCH (10:07)
[2021-02-03] MEDS: ATORVASTATIN 20 MG TABLET PO SCH (10:07)
[2021-02-03] MEDS: DOXYCYCLINE HYCLATE 100 MG CAPSULE PO SCH ×2 (10:07→21:49)
[2021-02-03 11:45] VITALS: BP_SYST 107
[2021-02-03 16:00] VITALS: BP_SYST 116
--- NOTE | 2021-02-03 16:14 | NUR ---
ATTENDING MD DR ALVAREZ WAS CALLED RE: HIGH PT/INR.
--- NOTE | 2021-02-03 16:15 | NUR ---
SPOKE WITH DR ALVAREZ REGARDING PT 19.5, INR 1.9. PER MD TO HOLD THE LOVENOX FOR TODAY. IN REGARDS TO COUMADIN, PHARMACY WILL DECIDE. SPOKE WITH PHARMACIST AND OK TO GIVE DOSE OF COUMADIN TODAY. PATIENT IS ALMOST AT ITS THERAPEUTIC GOAL PER RX.
[2021-02-03] MEDS: ENOXAPARIN SODIUM 60 MG/0.6 ML SYRINGE SUBCUT SCH ×2 (16:19→21:00)
--- NOTE | 2021-02-03 16:58 | NUR ---
Discharge Planning: DCP faxed pt referral [facility] Mayra and Brielle Rae dedclined DCP to follow up
[2021-02-03] MEDS: WARFARIN SODIUM 6 MG TABLET PO SCH (17:32)
--- NOTE | 2021-02-03 18:00 | NUR ---
0715AM: PATIENT IS RESTING IN BED QUIETLY. NO ADDITIONAL DISTRESS NOTED. BED IN LOW AND LOCK. BED ALARM ON. CALL LIGHT WITHIN REACH. SISTER AT THE BEDSIDE AT ALL TIMES. WILL CONT TO MONITOR. 0800AM: PATIENT IS AAOX1 TO SELF, EPISODE OF CONFUSION. EXPLAINED PLAN OF CARE HOWEVER PATIENT DOES NOT SEEM TO COMPREHEND OR RETAIN INFO BEING ASK. HARD OF HEARING AND NON COMPLIANT AT TIMES. STABLE CONDITION AT THIS TIME. 0900AM: HELD LOVENOX DUE TO PT 19.5, INR 1.[address] ALVAREZ AWARE. 1000AM: PATIENT IS ASLEEP. NO ADDITIONAL DISTRESS NOTED. 1200PM: PATIENT IS RESTING IN BED TRYING TO EAT HER LUNCH. NO ADDITIONAL DISTRESS NOTED. 1400: PATIENT IS ASLEEP. WILL CONT TO MONITOR. 1600: PATIENT IS RESTING IN BED, AWAKE. NO ADDITIONAL DISTRESS NOTED. SITTER AT THE BEDSIDE. WILL CONT TO MONITOR. 1800: PATIENT IS RESTING IN BED TRYING TO EAT HER DINNER. NO CHANGE FROM PREVIOUS ASSESSMENT STABLE AT THIS TIME. WILL CONT TO MONITOR.
--- NOTE | 2021-02-03 19:10 | NUR ---
1844: PATIENT IS RESTING IN BED TRYING TO EAT HER DINNER. STABLE CONDITION AT THIS TIME. SITTER AT THE BEDSIDE. WILL CONT TO MONITOR. 1909; SBAR REPORT GIVEN TO NIGHT RN. STABLE CONDITION AT THIS TIME.
[2021-02-03 20:00] VITALS: BP_SYST 132
[2021-02-04] VITALS (7 sets, daily range): BP systolic 117–133
[2021-02-04] MEDS: DIPHENHYDRAMINE HCL 25 MG CAPSULE PO PRN ×2 (01:17→23:54)
[2021-02-04] MEDS: IPRATROPIUM/ALBUTEROL SULFATE 3 ML AMPUL.NEB (DUONEB) INH SCH ×4 (04:43→19:20)
--- NOTE | 2021-02-04 07:40 | NUR ---
Initial Note Patient awake and alert, not oriented. Patient nonverbal when asked questions. Only states "no" when refusing parts of assessment. No pain or distress noted. Saturating 94% on room air at this time. Patient desaturates to 80% after a few minutes; reapplied nasal cannula at 2 L/min and O2 saturation increased to 100%. Call light in reach and bed in lowest position with alarm on. Encouraged to call and will continue to monitor.
[2021-02-04 07:55] LABS: BASOPHILS % (AUTO) 0.6 % (0.0-2.0); EOSINOPHILS % (AUTO) 0.4 % (0.0-4.0); HEMATOCRIT 36.7 % (36-48); HEMOGLOBIN 12.2 g/dL (12.0-16.0); LYMPHOCYTES # (AUTO) 0.8 K/uL (1.0-5.5); LYMPHOCYTES % (AUTO) 11.3 % (20.5-51.5); MEAN CORPUSCULAR HEMOGLOBIN 30 pg (27-31); MEAN CORPUSCULAR HGB CONC 33 % (32-36); MEAN CORPUSCULAR VOLUME 91 fL (79.0-98.0); MONOCYTES # (AUTO) 0.7 K/uL (0.0-1.0); NEUTROPHILS # (AUTO) 5.2 K/uL (1.8-7.7); NEUTROPHILS % (AUTO) 76.7 % (40.0-70.0); PLATELET COUNT (AUTO) 153 K/uL (130-430); RED BLOOD CELL COUNT(AUTO) 4.05 MIL/uL (4.2-6.2); RED CELL DISTRIBUTION WIDTH 15.3 % (9.0-15.0); WHITE BLOOD COUNT (AUTO) 6.8 K/uL (4.8-10.8)
[2021-02-04 08:48] LABS: INR 1.7 (0.8-1.2); PROTHROMBIN TIME 17.3 SECS (9.5-12.5)
[2021-02-04] MEDS: BUDESONIDE 0.5 MG/2 ML AMPUL.NEB INH SCH ×2 (09:00→21:00)
--- NOTE | 2021-02-04 09:20 | NUR ---
Notes Paged at 0915. Notified Dr. Pruitt at 0920 of PT 17.3 and INR 1.7. Will carry out new orders.
[2021-02-04] MEDS: ATORVASTATIN 20 MG TABLET PO SCH (09:34)
[2021-02-04] MEDS: PANTOPRAZOLE SODIUM 40 MG TAB PO SCH (09:34)
[2021-02-04] MEDS: BUMETANIDE 1 MG TABLET PO SCH (09:38)
[2021-02-04 10:18] LABS: CALCIUM 10.3 mg/dL (8.4-11.0); CREATININE 0.6 mg/dL (0.55-1.30); POTASSIUM 3.8 mmol/L (3.5-5.1)
--- NOTE | 2021-02-04 12:00 | NUR ---
Notes Patient asleep in bed, wakes to deep stimuli. Continues with confusion, not responding verbally. No pain or distress noted. Call light and bedside table in reach, bed in lowest position with alarm on. Encouraged to call.
--- NOTE | 2021-02-04 16:00 | NUR ---
Notes Patient lying asleep in bed, wakes with verbal and tactile stimuli. Nonverbal at this time. No pain or distress observed. Saturating 99% on 2 L via N/C. Repositioned patient for comfort. Call light and bedside table in reach, bed in lowest position with alarm on.
[2021-02-04] MEDS: WARFARIN SODIUM PO SCH ×2 (18:27)
--- NOTE | 2021-02-04 18:34 | NUR ---
Closing Note Patient awake and alert, not oriented. No pain or distress. Changed patient with assist and repositioned for comfort. Call light and bedside table in reach, bed in lowest position with alarm on. Will continue to monitor and endorse to night nurse.
[2021-02-04] MEDS: NORMAL SALINE 5 ML DISP.SYRIN IVF SCH (21:42)
[2021-02-05 00:01] VITALS: BP_SYST 119
--- NOTE | 2021-02-05 00:10 | NUR ---
PATIENT RESTING, NO SIGNS OF ACUTE RESPIRATORY DISTRESS, 99% SATURATION. WILL CONTINUE TO MONITOR.
[2021-02-05] MEDS: IPRATROPIUM/ALBUTEROL SULFATE 3 ML AMPUL.NEB (DUONEB) INH SCH ×4 (01:00→20:19)
[2021-02-05] MEDS: NORMAL SALINE 5 ML DISP.SYRIN IVF SCH ×3 (06:00→20:55)
--- NOTE | 2021-02-05 06:57 | NUR ---
CLOSING NOTES PATIENT RESTING IN BED, NO SIGNS OF DISTRESS NOTED. CALL LIGHT WITHIN REACH, PATIENT DID NOT DEMONSTRATE CALL LIGHT USAGE, PATIENT CLOSELY MONITORED, BED ALARM ON, BED AT LOWEST POSITION, BED LOCKED. FALL, RESPIRATORY, ASPIRATION AND SAFETY PRECAUTIONS IN PLACE THROUGHOUT SHIFT. ALL NEEDS MET THROUGHOUT SHIFT. WILL ENDORSE CARE TO ONCOMING SHIFT.
[2021-02-05] MEDS: BUDESONIDE 0.5 MG/2 ML AMPUL.NEB INH SCH (07:24)
[2021-02-05 07:56] LABS: INR 2.1 (0.8-1.2); PROTHROMBIN TIME 21.2 SECS (9.5-12.5)
[2021-02-05 08:00] VITALS: BP_SYST 101
--- NOTE | 2021-02-05 08:00 | NUR ---
PATIENT IN BED, NO S/S OF DISTRESS, NO IV AT THIS TIME, MD AWARE, PATIENT IS CONFUSED BUT RESPONDS TO NAME, ON A 2GM NA+ DIET, SEIZURE PRECAUTIONS IN PLACE, BED REST, BED IN LOWEST LOCKED POSITION, CALL LIGHT WITHIN, REACH, SAFETY MEASURES IN PLACE, WILL CONTINUE TO MONITOR.
[2021-02-05] MEDS: PANTOPRAZOLE SODIUM 40 MG TAB PO SCH (08:43)
[2021-02-05] MEDS: ATORVASTATIN 20 MG TABLET PO SCH (08:43)
[2021-02-05] MEDS: BUMETANIDE 1 MG TABLET PO SCH (08:44)
[2021-02-05 12:00] VITALS: BP_SYST 101
--- NOTE | 2021-02-05 12:00 | NUR ---
PATIENT SET UP FOR LUNCH, EATING INDEPENDENTLY, TOLERATING WELL, WILL MONITOR
--- NOTE | 2021-02-05 14:00 | NUR ---
PATIENT CLEANED WITH ASSISTANCE OF JULIANNA THE MACHINE WIPER FOR INCONTINENCE, ALL LINENS CHANGED AND PATIENT BATHED, TOLERATED WELL.
[2021-02-05 16:00] VITALS: BP_SYST 108
[2021-02-05] MEDS: WARFARIN SODIUM PO SCH ×2 (18:02)
--- NOTE | 2021-02-05 18:52 | NUR ---
PATIENT IN BED, NO S/S OF DISTRESS, NO IV AT THIS TIME, MD AWARE, PATIENT IS CONFUSED BUT RESPONDS TO NAME, ON A 2GM NA+ DIET, SEIZURE PRECAUTIONS IN PLACE, BED REST, BED IN LOWEST LOCKED POSITION, CALL LIGHT WITHIN, REACH, SAFETY MEASURES IN PLACE, WILL ENDORSE CONTINUATION OF CARE TO SHIRT BANDER.
[2021-02-05 20:00] VITALS: BP_SYST 107
--- NOTE | 2021-02-05 22:00 | NUR ---
ROUNDING NOTES Patient resting in bed - no s/s pain or distress noted. Respirations even and unlabored - head of bed elevated. IV site patent - no s/s redness, infection, or infiltration. Bed locked and in lowest position. Call light within reach - bed alarm on.
[2021-02-06 00:32] VITALS: BP_SYST 116
[2021-02-06] MEDS: BUDESONIDE 0.5 MG/2 ML AMPUL.NEB INH SCH ×2 (01:46→09:00)
[2021-02-06] MEDS: NORMAL SALINE 5 ML DISP.SYRIN IVF SCH ×3 (06:00→23:01)
--- NOTE | 2021-02-06 07:58 | NUR ---
PATIENT IN BED, NO S/S OF DISTRESS, PATIENT SLEEPING INTERMITTENTLY, ASKED TO HAVE GOWN FIXED AND DID TO, ORGANIZED LINENS AND HELPED PATIENT REACH AN ACCEPTABLE COMFORT LEVEL, SEIZURE PRECAUTIONS IN PLACE, SAFETY MEASURES IN PLACE, BED IN LOWEST LOCKED POSITION, CALL LIGHT WITHIN REACH, WILL CONTINUE TO MONITOR.
[2021-02-06 08:00] VITALS: BP_SYST 102
[2021-02-06 08:00] LABS: PROTHROMBIN TIME 21.1 SECS (9.5-12.5)
[2021-02-06] MEDS: IPRATROPIUM/ALBUTEROL SULFATE 3 ML AMPUL.NEB (DUONEB) INH SCH ×3 (08:45→20:47)
[2021-02-06] MEDS: PANTOPRAZOLE SODIUM 40 MG TAB PO SCH (10:04)
[2021-02-06] MEDS: ATORVASTATIN 20 MG TABLET PO SCH (10:04)
[2021-02-06] MEDS: BUMETANIDE 1 MG TABLET PO SCH (10:39)
[2021-02-06 12:00] VITALS: BP_SYST 107
--- NOTE | 2021-02-06 12:00 | NUR ---
patient in bed, no s/s of distress, cleaned linens and helped patient get comfortable, assisted to set patient up for lunch, eating independently but monitoring for safety.
[2021-02-06 15:29] VITALS: BP_SYST 120
--- NOTE | 2021-02-06 15:38 | NUR ---
patient linens changed, was incontinent urine, cleaned and patient states that she is comfortable. no new needs at this time
[2021-02-06] MEDS: WARFARIN SODIUM PO SCH ×2 (17:29)
--- NOTE | 2021-02-06 19:09 | NUR ---
PATIENT IN BED, NO S/S OF DISTRESS, SEIZURE PRECAUTIONS IN PLACE, SAFETY MEASURES IN PLACE, BED IN LOWEST LOCKED POSITION, CALL LIGHT WITHIN REACH, ENDORSING CONTINUATION OF CARE TO ENERGY AND CONSERVATION TECHNICIAN
[2021-02-06 20:00] VITALS: BP_SYST 98
[2021-02-07] MEDS: BUDESONIDE 0.5 MG/2 ML AMPUL.NEB INH SCH ×2 (00:50→07:37)
[2021-02-07 00:55] VITALS: BP_SYST 102
[2021-02-07] MEDS: IPRATROPIUM/ALBUTEROL SULFATE 3 ML AMPUL.NEB (DUONEB) INH SCH ×3 (02:45→13:52)
[2021-02-07] MEDS: NORMAL SALINE 5 ML DISP.SYRIN IVF SCH ×2 (06:28→14:00)
[2021-02-07 08:00] VITALS: BP_SYST 95
--- NOTE | 2021-02-07 08:04 | NUR ---
Nutrition F/U Admitting Diagnosis: Respiratory Acidosis Medical History Comment: Pt w/: Pneumonia, Acute on chronic respiratory failure, Hx of CHF, Pneumonitis, PE, Epilepsy, Psychiatric problems, possible COPD per MD notes. SARS-CoV-2 Ag rapid 01/26 Negative Subjective Information: LATE ENTRY d/t high pt load. Pt was seen 02/06 in bed, appeared confused and RN at bedside providing care. RN reported that pt did not eat breakfast yet because pt was not able to sleep the night before. But RN attested that pt is able to eat and has been tolerating food well. PO intake records indicate pt has been w/ poor PO intake x x7 days. ONS Ensure has been ordered and being offered to pt to optimize PO intake. Current Diet Order/Nutrition Support: Mechanical soft 2gm Na diet, Ensure Enlive TID x6 days Pertinent Medications: Lovenox, Warfarin, Lipitor, Protonix, Budesonide Pertinent Labs 02/04 Na 135L, K 3.8WNL, BG 159H, BUN 15WNL, Cre 0.60L Height: 5 feet, 2.00 inches Weight: 110 pounds/ 49.337627 kilograms (01/31) --stable Body Mass Index: 20.12 kg/m2 [place]/Adjusted Body Weight: 110#/50kg Estimated Energy Expenditure (kcals/day) 6416-0775 (25-30 kcal/kg CBW for maintenance) Estimated Protein Required (g/day) 50 (1gm/kg CBW for maintenance) Estimated Fluid Required (l/day) per MD (CHF) Problem/Etiology/Signs/Symptoms Predicted suboptimal protein-calorie intake r/t possible chewing difficulty AEB PO intake meets <50% of estimated needs x7 days and reported chopped diet at the facility. (*modified) Altered nutrition related labs r/t medication interaction AEB elevated BG, on steroid therapy. (*new) Expected Outcomes/Goals Monitor appetite and PO intake w/ goal of pt meeting more than 75% of estimated nutritional needs, labs trending WNL, normal GI function, skin integrity/wt maintenance. Dietitian Recommendations *Recommend continue: Mechanical soft 2gm Na diet w/ Ensure Enlive TID. ONS will provide additional 1050 kcal, 60gm protein daily. *Maximum encouragement q meal. *Consider adding appetite stimulant. Follow Up Mod Risk: F/U in 3-5 days
[2021-02-07 10:59] VITALS: BP_SYST 95
--- NOTE | 2021-02-07 11:16 | NUR ---
INFORMED WADE MAHMOOD THAT THE PATIENT HAS BEEN OFF THE TELE MONITOR FOR 30 MINUTES
[2021-02-07 12:00] VITALS: BP_SYST 103
--- NOTE | 2021-02-07 12:31 | NUR ---
Discharge Planning: [facility] faxed pt referral to [facility] (F [phone] P [phone]) for home O2. DCP to follow up. Addendum: 02/07/21 at 1418 by Cyndi Domínguez DP DCP followed up on pt referral to [facility] (F [phone] P [phone]) for home O2, [facility] received forms for Dr Pruitt to fill out, placed them on chart at nurses station charge nurse made aware. Also a form for nurse to register O2 sat on RA. [facility] to follow up.
[2021-02-07] MEDS: PANTOPRAZOLE SODIUM 40 MG TAB PO SCH (14:19)
[2021-02-07] MEDS: ATORVASTATIN 20 MG TABLET PO SCH (14:19)
[2021-02-07] MEDS: BUMETANIDE 1 MG TABLET PO SCH (14:20)
[2021-02-07 16:00] VITALS: BP_SYST 111
--- NOTE | 2021-02-07 16:00 | NUR ---
AWAKE,ALERT,CONFUSED,VSS,O2 SAT 94-97% ON ROOM AIR,NO O2 NEEDED PER CRITERIA D/C TO [facility] PICKED UP BY [employer].
== END 2021-02-07 15:10 | disposition home or self-care (01) | DRG 720 ==
LOC: SED 13:33 → STU 17:22
PROVIDERS: ADMIT Internal Medicine; ATTEND Internal Medicine
PROC: 5A09357 Assistance with Respiratory Ventilation, Less than 24 Consecutive Hours, Continuous Positive Airway Pressure (ICD-10-PCS; principal; 2021-01-28)
PROC: 5A09357 Assistance with Respiratory Ventilation, Less than 24 Consecutive Hours, Continuous Positive Airway Pressure (ICD-10-PCS; 2021-02-01)
DX: A41.9 Sepsis, unspecified organism (principal); J96.21 Acute and chronic respiratory failure with hypoxia; J69.0 Pneumonitis due to inhalation of food and vomit; I50.33 Acute on chronic diastolic (congestive) heart failure; E87.2 Acidosis; E87.3 Alkalosis; J96.22 Acute and chronic respiratory failure with hypercapnia; F32.A Depression, unspecified; F29 Unspecified psychosis not due to a substance or known physiological condition; I11.0 Hypertensive heart disease with heart failure; J44.9 Chronic obstructive pulmonary disease, unspecified; G40.909 Epilepsy, unspecified, not intractable, without status epilepticus; Z20.822 Contact with and (suspected) exposure to COVID-19; Z88.1 Allergy status to other antibiotic agents; Z88.8 Allergy status to other drugs, medicaments and biological substances; Z79.899 Other long term (current) drug therapy; Z79.01 Long term (current) use of anticoagulants; Z86.711 Personal history of pulmonary embolism; Z93.1 Gastrostomy status
CPT/HCPCS: 36415; 36600; 71045; 80048; 80053; 80061; 80162; 80164; 82803-TC; 83880; 84443; 84484; 85025; 85610-TC; 85730-TC; 87081; 93005; 93306; 94640; 94660; 94760; C9113; G0378; J0456; J0696; J1120; J1200; J1650; J3490; J7050; J7626; Q0163